=== PATIENT | female | born 1935 | race Caucasian/White ===

== ENCOUNTER → 2018-06-05 | Outpatient (CLI) | payer OTHER ==
[2018-06-05 10:00] LABS: BASO % 0.5 % (0.0-1.0); EOS # 0.2 10*3/uL (0.0-0.4); EOS % 3.4 % (1.0-4.0); HEMATOCRIT 39.6 % (37.0-47.0); HEMOGLOBIN 12.3 g/dl (12.0-16.0); LYMPH # 1.6 10*3/uL (1.3-4.4); LYMPH % 36.2 % (27.0-41.0); MEAN CELL VOLUME 89.2 fl (81.0-99.0); MEAN CORPUSCULAR HGB 27.7 pg (27.0-31.0); MEAN CORPUSCULAR HGB CONC 31.1 g/dl (33.0-37.0); MEAN PLATELET VOLUME 10.5 fl (9.6-12.3); MONO # 0.5 10*3/uL (0.1-1.0); MONO % 10.2 % (3.0-9.0); NEUT # 2.2 10*3/uL (2.3-7.9); NEUT % 49.2 % (47.0-73.0); PLATELET COUNT AUTOMATED 198 10*3/uL (130-400); RED BLOOD COUNT 4.44 10*6/uL (4.10-5.10); RED CELL DISTRI WIDTH 13.1 % (0-14.5); WHITE BLOOD COUNT 4.4 10*3/uL (4.8-10.8)
[2018-06-05 10:00] LABS: BILIRUBIN NEGATIVE (NEGATIVE); BLOOD NEGATIVE (NEGATIVE); CLARITY CLEAR (CLEAR); COLOR YELLOW (YELLOW); GLUCOSE NEGATIVE (NEGATIVE); KETONE NEGATIVE (NEGATIVE); LEUKO ESTERASE 1+ (NEGATIVE); NITRITE NEGATIVE (NEGATIVE); PH 5.5 (5.0-9.0); SPECIFIC GRAVITY >= 1.030 (1.005-1.030); UROBILINOGEN 0.2 E.U./dl (0.2-1.0)
[2018-06-05 10:23] LABS: BACTERIA 1+; WBC 16-20 wbc/hpf (0-5)
[2018-06-05 10:24] LABS: ALBUMIN 3.7 gm/dl (3.1-4.5); ALKALINE PHOSPHATASE 104 U/L (45-117); BUN 21 mg/dl (7-24); CHLORIDE 110 mmol/L (98-107); CHOLESTEROL 219 mg/dL (<200); FREE T4 1.04 ng/dl (0.76-1.46); HDL CHOLESTEROL 59 mg/dl (40-60); LDL CHOLESTEROL 137 mg/dL (9-159); SGOT/AST 18 IU/L (3-35); SGPT/ALT 19 U/L (12-78); SODIUM 142 mmol/L (136-145); TOTAL PROTEIN 7.9 gm/dL (6.4-8.2); TRIGLYCERIDES 113 mg/dl (<150); VLDL CHOLESTEROL 23 mg/dL (6-40)
== END | disposition home or self-care (01) ==
LOC: LAB 09:13
PROVIDERS: Internal Medicine
DX: E78.5 Hyperlipidemia, unspecified (principal); E03.9 Hypothyroidism, unspecified; E55.9 Vitamin D deficiency, unspecified; E11.9 Type 2 diabetes mellitus without complications; N39.0 Urinary tract infection, site not specified; Z79.899 Other long term (current) drug therapy

== ENCOUNTER → 2018-12-20 | Outpatient (CLI) | payer MEDICARE | END | disposition home or self-care (01) | LOC: CT 09:00 | DX: K57.30 Diverticulosis of large intestine without perforation or abscess without bleeding (principal) ==

== ENCOUNTER → 2019-02-14 | Outpatient (CLI) | payer MEDICARE ==
[2019-02-14 08:42] LABS: BASO % 0.4 % (0.0-1.0); EOS # 0.2 10*3/uL (0.0-0.4); HEMATOCRIT 35.6 % (37.0-47.0); HEMOGLOBIN 11.4 g/dl (12.0-16.0); LYMPH # 1.4 10*3/uL (1.3-4.4); LYMPH % 26.7 % (27.0-41.0); MEAN CELL VOLUME 89.7 fl (81.0-99.0); MEAN CORPUSCULAR HGB 28.7 pg (27.0-31.0); MEAN PLATELET VOLUME 10.5 fl (9.6-12.3); MONO # 0.5 10*3/uL (0.1-1.0); MONO % 9.5 % (3.0-9.0); NEUT # 3.1 10*3/uL (2.3-7.9); NEUT % 58.7 % (47.0-73.0); PLATELET COUNT AUTOMATED 254 10*3/uL (130-400); RED BLOOD COUNT 3.97 10*6/uL (4.10-5.10); WHITE BLOOD COUNT 5.3 10*3/uL (4.8-10.8)
[2019-02-14 08:44] LABS: BILIRUBIN NEGATIVE (NEGATIVE); BLOOD NEGATIVE (NEGATIVE); CLARITY SL CLOUDY (CLEAR); COLOR YELLOW (YELLOW); GLUCOSE NEGATIVE (NEGATIVE); KETONE NEGATIVE (NEGATIVE); LEUKO ESTERASE TRACE (NEGATIVE); NITRITE NEGATIVE (NEGATIVE); PH 5.5 (5.0-9.0); UROBILINOGEN 0.2 E.U./dl (0.2-1.0)
[2019-02-14 09:03] LABS: ALBUMIN 3.7 gm/dl (3.1-4.5); BUN 22 mg/dl (7-24); CHLORIDE 108 mmol/L (98-107); CHOLESTEROL 197 mg/dL (<200); CREATININE 1.04 mg/dL (0.55-1.02); POTASSIUM 4.2 mmol/L (3.5-5.1); SGOT/AST 9 IU/L (3-35); SGPT/ALT 12 U/L (12-78); SODIUM 138 mmol/L (136-145); TOTAL PROTEIN 7.8 gm/dL (6.4-8.2); TRIGLYCERIDES 222 mg/dl (<150); VLDL CHOLESTEROL 44 mg/dL (6-40)
[2019-02-14 09:09] LABS: ALKALINE PHOSPHATASE 176 U/L (45-117); FREE T4 0.85 ng/dl (0.76-1.46); HDL CHOLESTEROL 45 mg/dl (40-60); LDL CHOLESTEROL 108 mg/dL (9-159); THYROID STIM HORMONE (HS) 0.537 uIU/ml (0.358-4.75)
[2019-02-14 09:34] LABS: BACTERIA TRACE; MUCOUS TRACE
== END | disposition home or self-care (01) ==
LOC: LAB 00:37
PROVIDERS: Internal Medicine
DX: E03.9 Hypothyroidism, unspecified (principal); E78.5 Hyperlipidemia, unspecified; N39.0 Urinary tract infection, site not specified; R73.01 Impaired fasting glucose; Z79.899 Other long term (current) drug therapy

== ENCOUNTER → 2019-02-21 | Outpatient (CLI) | payer MEDICARE | END | disposition home or self-care (01) | LOC: US 16:18 | DX: I73.9 Peripheral vascular disease, unspecified (principal); I10 Essential (primary) hypertension; R20.0 Anesthesia of skin ==

== ENCOUNTER 2019-03-15 17:23 | Emergency (ER) | payer MEDICARE ==
[~2019-03-15] VITALS: Wt 73.9 kg
== END 2019-03-15 18:48 | disposition home or self-care (01) ==
LOC: ED 17:23
DX: R22.31 Localized swelling, mass and lump, right upper limb (principal); Z88.0 Allergy status to penicillin; Z88.2 Allergy status to sulfonamides; Z88.1 Allergy status to other antibiotic agents; Z88.8 Allergy status to other drugs, medicaments and biological substances

== ENCOUNTER 2019-06-20 10:53 | Emergency (ER) | payer MEDICARE ==
[~2019-06-20] VITALS: Ht 157.4 cm; Wt 77.6 kg
[2019-06-20] MEDS ORDERED: LISINOPRIL20 MG PO (11:19)
[2019-06-20] MEDS ORDERED: GEMFIBROZIL600 MG PO (11:20)
[2019-06-20] MEDS ORDERED: FLUOXETINE HCL20 M2 PO (11:21)
[2019-06-20] MEDS ORDERED: PANTOPRAZOLE SO40 MG PO (11:21)
[2019-06-20] MEDS ORDERED: DONEPEZIL HYDROC5 MG PO (11:21)
[2019-06-20] MEDS ORDERED: ATENOLOL50 M1 PO (11:22)
[2019-06-20] MEDS ORDERED: LEVOTHYROXINE100 MC1 PO (11:22)
[2019-06-20] MEDS ORDERED: CALCIUM 600 WI1 EAC1 PO (11:25)
[2019-06-20] MEDS ORDERED: ASPIRIN CHEWABL81 MG PO (11:25)
[2019-06-20] MEDS ORDERED: ALLERGY MEDICIN25 M1 PO (11:26)
[2019-06-20] MEDS ORDERED: CHLORTABS4 MG PO (11:26)
== END 2019-06-20 13:24 | disposition home or self-care (01) ==
LOC: ED 10:53
DX: T14.8XXA Other injury of unspecified body region, initial encounter (principal); M79.661 Pain in right lower leg; R07.81 Pleurodynia; F03.90 Unspecified dementia, unspecified severity, without behavioral disturbance, psychotic disturbance, mood disturbance, and anxiety; I10 Essential (primary) hypertension; E78.2 Mixed hyperlipidemia; Z88.0 Allergy status to penicillin; Z88.2 Allergy status to sulfonamides; Z88.1 Allergy status to other antibiotic agents; Z88.8 Allergy status to other drugs, medicaments and biological substances; Z79.899 Other long term (current) drug therapy; Z79.82 Long term (current) use of aspirin; W19.XXXA Unspecified fall, initial encounter; Y93.89 Activity, other specified; Y92.89 Other specified places as the place of occurrence of the external cause; Y99.8 Other external cause status

== ENCOUNTER 2019-07-12 08:40 | Inpatient (IN) | payer MEDICARE, MEDICAID ==
[~2019-07-12] VITALS: Ht 157.5 cm; Wt 77.1 kg
[~2019-07-12 08:40] MED LIST: ALLERGY MEDICIN25 M1 PO; ASPIRIN CHEWABL81 MG PO; ATENOLOL50 M1 PO; CALCIUM 600 WI1 EAC1 PO; CHLORTABS4 MG PO; DONEPEZIL HYDROC5 MG PO; FLUOXETINE HCL20 M2 PO; GEMFIBROZIL600 MG PO; LEVOTHYROXINE100 MC1 PO; LISINOPRIL20 MG PO; PANTOPRAZOLE SO40 MG PO
[2019-07-12 08:49] VITALS: BP 125/89
--- NOTE | 2019-07-12 11:08 | NUR ---
PT REMAINS W/O ACUTE DISTRESS NOTED WITH FAMILY @ BEDSIDE,SAFETY PRECAUTIONS INTACT AND CALL LIGHT WITHIN REACH.
[2019-07-12] MEDS ORDERED: INDOMETHACIN ER75 M1 PO (11:56)
[2019-07-12 12:38] VITALS: BP 130/80
--- NOTE | 2019-07-12 12:48 | NUR ---
PT WITH RT GREAT TOE WITH SCANT REDNESS S/P "TOENAILS CUT BY DIDACTIC PROGRAM IN DIETETICS DIRECTOR AND IT (TOE)STARTED TO HURT AND LLE WITH SMALL REDDENED AREA.
--- NOTE | 2019-07-12 13:10 | NUR ---
Time: 1309 A 84 year old MALE admitted to 5E under services of JESSIE LIVINGSTON DO. Pt. arrived via stretcher from ER. Chief complaint: PAIN . CALOS CABAN
[2019-07-12 13:20] LABS: BASO % 0.4 % (0.0-1.0); EOS # 0.1 10*3/uL (0.0-0.4); EOS % 2.8 % (1.0-4.0); HEMATOCRIT 35.6 % (37.0-47.0); HEMOGLOBIN 11.1 g/dl (12.0-16.0); LYMPH # 1.3 10*3/uL (1.3-4.4); LYMPH % 27.5 % (27.0-41.0); MEAN CELL VOLUME 90.8 fl (81.0-99.0); MEAN CORPUSCULAR HGB 28.3 pg (27.0-31.0); MEAN CORPUSCULAR HGB CONC 31.2 g/dl (33.0-37.0); MEAN PLATELET VOLUME 10.2 fl (9.6-12.3); MONO # 0.5 10*3/uL (0.1-1.0); MONO % 11.2 % (3.0-9.0); NEUT # 2.7 10*3/uL (2.3-7.9); NEUT % 57.5 % (47.0-73.0); PLATELET COUNT AUTOMATED 217 10*3/uL (130-400); RED BLOOD COUNT 3.92 10*6/uL (4.10-5.10); RED CELL DISTRI WIDTH 13.6 % (0-14.5); WHITE BLOOD COUNT 4.7 10*3/uL (4.8-10.8)
[2019-07-12 13:45] LABS: ALBUMIN 3.5 gm/dl (3.1-4.5); CREATININE 1.19 mg/dL (0.55-1.02); POTASSIUM 4.1 mmol/L (3.5-5.1); TOTAL PROTEIN 7.6 gm/dL (6.4-8.2)
[2019-07-12 13:55] VITALS: BP 141/48
[2019-07-12] MEDS ORDERED: CLARITIN10 MG PO (15:05)
[2019-07-12 16:00] VITALS: BP 153/64; BP 163/64
[2019-07-12 20:00] VITALS: BP 145/45
--- NOTE | 2019-07-12 23:24 | NUR ---
24 HR chart check completed.
--- NOTE | 2019-07-12 23:34 | NUR ---
TYLENOL AND RESTORIL GIVEN PER ORDER FOR RIGHT KNEE DISCOMFORT RATED "5" AND INSOMNIA. SEE MAR.
[2019-07-13] VITALS: BP 142/44
--- NOTE | 2019-07-13 00:35 | NUR ---
TYLENOL AND RESTORIL HELPING WITH PAIN AND PT. DROWSY.
--- NOTE | 2019-07-13 02:00 | NUR ---
SLEEPING NO ACUTE DISTRESS NOTED.
--- NOTE | 2019-07-13 03:20 | NUR ---
SLEEPING NOT ACUTE DISTRESS NOTED.
[2019-07-13 07:10] LABS: BASO % 0.3 % (0.0-1.0); EOS # 0.1 10*3/uL (0.0-0.4); EOS % 2.8 % (1.0-4.0); HEMATOCRIT 34.9 % (37.0-47.0); HEMOGLOBIN 10.6 g/dl (12.0-16.0); LYMPH # 0.8 10*3/uL (1.3-4.4); LYMPH % 23.5 % (27.0-41.0); MEAN CELL VOLUME 90.6 fl (81.0-99.0); MEAN CORPUSCULAR HGB 27.5 pg (27.0-31.0); MEAN CORPUSCULAR HGB CONC 30.4 g/dl (33.0-37.0); MEAN PLATELET VOLUME 10.5 fl (9.6-12.3); MONO # 0.4 10*3/uL (0.1-1.0); NEUT # 1.9 10*3/uL (2.3-7.9); NEUT % 59.5 % (47.0-73.0); PLATELET COUNT AUTOMATED 181 10*3/uL (130-400); RED BLOOD COUNT 3.85 10*6/uL (4.10-5.10); RED CELL DISTRI WIDTH 13.3 % (0-14.5); WHITE BLOOD COUNT 3.2 10*3/uL (4.8-10.8)
[2019-07-13 07:40] LABS: ACT PARTIAL THROMBO TIME 25.9 SECONDS (20.0-32.1); INTERNATIONAL NORM RATIO 0.9 (2.0-3.5)
[2019-07-13 07:41] LABS: BUN 26 mg/dl (7-24); CHLORIDE 110 mmol/L (98-107); CREATININE 1.05 mg/dL (0.55-1.02); POTASSIUM 4.1 mmol/L (3.5-5.1); SODIUM 141 mmol/L (136-145)
[2019-07-13 07:52] LABS: THYROID STIM HORMONE (HS) 0.785 uIU/ml (0.358-4.75)
[2019-07-13 08:00] VITALS: BP 150/48
[2019-07-13 08:17] LABS: VITAMIN D, 25-HYDROXY 37.1 ng/mL (30-100)
--- NOTE | 2019-07-13 10:09 | NUR ---
PATIENT C/O RIGHT KNEE PAIN. MEDICATED WITH TYLENOL PER PRN ORDER.
--- NOTE | 2019-07-13 10:30 | NUR ---
PHYSICAL THERAPY Isidra completed moderate level of complexity 39794 recomend SNF at discharge PT to work on transfers, ambulation balance and safety Janice Oconnor PT
--- NOTE | 2019-07-13 11:00 | NUR ---
Occupational Therapy evaluation completed on 5 with full eval to follow. Precautions include fall risk; bed/chair alarm, imp cognition; memory,orientation,impaired ADLs and safety in standing, moderate complexity level 54218. Recommend OT per pOC and SNf to enable safe return home w/ family. Thank you. Joyce Thurman OTr/l
[2019-07-13 12:00] VITALS: BP 120/60
--- NOTE | 2019-07-13 12:57 | NUR ---
Electronic Court Recorder in to talk to patient. Patient states lives at HOME with DAUGHTER. There are 1 steps in the home. Physician: SOLOMON Pharmacy: [facility] Home health services: NONE Patient's level of ADLs: MINIMAL ASSIST Patient has working utilities: YES DME: [facility] Follow-up physician's appointment after d/c: WILL BE MADE BY HOSPITALIST NURSE DIRECTOR ON DISCHARGE Does patient want to access PORTAL?: NO Discharge plan PT LIVES AT HOME WITH HER DAUGHTER. STATES SHE IS ABLE TO GET AROUND SOME AT HOME BUT HAS BEEN HAVING FALLS. PT WANTS TO GO TO A SNF BEFORE RETURNING HOME FOR REHAB. WANTS ME TO TALK TO HER DAUGHTER TO SEE WHICH ONE. I SPOKE WITH HER DAUGHTER JENNIFER AND SHE IS REQUESTING [facility] AND [facility]. WILL CONTINUE TO FOLLOW. . OLEG BAE
--- NOTE | 2019-07-13 13:01 | NUR ---
WILL SEND REFERRALS TO SNF WHEN PT AND OT ASSESSMENTS AVAILABLE.
[2019-07-13 16:00] VITALS: BP 136/58
[2019-07-13 20:00] VITALS: BP 122/39
[2019-07-13 20:15] VITALS: BP 122/50
--- NOTE | 2019-07-13 22:41 | NUR ---
TYLENOL GIVEN FOR KNEE PAIN PER ORDER FOR PAIN RATED "5" AND RESTORIL GIVEN FOR INSOMNIA. SEE MAR.
--- NOTE | 2019-07-13 23:30 | NUR ---
TYLENOL EFFECTIVE FOR KNEE PAIN AND RESTORIL PT. SLEEPY
[2019-07-14] VITALS: BP 135/45
[2019-07-14 08:00] VITALS: BP 172/53
--- NOTE | 2019-07-14 09:25 | NUR ---
OT NOTE Pt was seen this A.M. 1:1 for 25 minute OT session. Upon arrival pt was sitting upright in the recliner. Pt identified by name and and had no complaints at this time. While seated pt donned socks and slippers with SBA. Sit to stand completed from chair level with modA and use of w/w for UE support. Pt was educated on proper hand placement for increased I and improved technique. Challenged pt's static standing tolerance needed for increased I in self care tasks and functional transfers. Pt was able to tolerate aprox 5 minutes before sitting due to fatigue. Functional mobility was then completed to the bathroom with CGA and use of w/w. There she transferred on to standard commode with Torie and off with modA and use of grab bar for UE support. Clothing management completed with Torie and toilet hygiene completed with Torie. Pt then stood sink side while washing her hands with CGA for safety. Functional mobility was then completed back to the recliner with CGA and use of w/w for UE support. Pt was left sitting upright in the recliner with call light in hand, tray table in place, and body alarm activated for safety. COntinue with rec D/C plan to SNF. RASTA Pepper/Hollie
--- NOTE | 2019-07-14 09:48 | NUR ---
Patient requesting a referral to 1. [facility] and 2. [facility]; Faxed to both locations. [facility] is [facility] and will check for any OON benefits. [facility].
--- NOTE | 2019-07-14 10:51 | NUR ---
PHYSICAL THERAPY TREATMENT TIME: 10:30 AM - 10:51 21 minutes Patient presented to therapy in sitting in bedside chair with no spO2 AND COMPLAINT OF R KNEE PAIN OF 5/10. Patient gives informed consent for treatment. Patient was identified by name and on wristband. Patient performed sit to stand out of bed side chair with MOD A X 1 due to increased R knee with sit to stand. Patient ambulated 28' x 1 with Wh Walker and CGA X 1 wit hNOB and patient sat in low chair in hallway with MIN A X 1. Patient performed TUG TEST in 56 seconds from low chair with no armrests. PATIENT REQUIRED MOD A X 1 TO SIT TO STAND OUT OF LOW CHAIR DURING TUG TEST. Patient ambulated with Wh Walker and CGA X 1 for 50' X 1 and NOB and mild SOB. Patient performed transferred to bedside chair with MIN A X 1. Patient performed 30 second sit to stand test out of bedside chair with results recorded as 2 sit to stands performed in 30 seconds total with CGA X 1- MIN A X 1. Patient was lef in bed side chair wit hchair alarm tested and attached ot patient, call light within reach and tray table near patient. Patient was 1:1 with this [employer] for 21 minutes total. ZOILA JEFFRIES [employer] [employer]
[2019-07-14 12:00] VITALS: BP 163/77
--- NOTE | 2019-07-14 12:46 | NUR ---
[facility] is stating patients oon benefits are the same at in network, they are reviewing clinicals, waiting on acceptance.
--- NOTE | 2019-07-14 14:48 | NUR ---
Pt was seen x 15 minutes with OT beginning with sit to stand from bedside chair with Min A x 1 or 2 at times when fatigued. Pt performed fxl mobility with w/walker throughout room & hallway with Min A due to safety issues. Transferred to chair with Min A & cues for hand placement when stand to sitting. Continue with OT per POC. Call light within reach. Sarina MENDIETA/Hollie
--- NOTE | 2019-07-14 14:51 | NUR ---
Patient has been accepted to [facility] and precert has been started. Waiting on auth.
--- NOTE | 2019-07-14 16:34 | NUR ---
OCCUPATIONAL THERAPY CO-SIGN I approve of the Occupational Therapy notes written above. JAMAR RAMESH OTR/Hollie
--- NOTE | 2019-07-14 16:36 | NUR ---
PHYSICAL THERAPY CO-SIGN I approve of the Physical Therapy notes written above. Janice Oconnor PT
--- NOTE | 2019-07-14 19:30 | NUR ---
PT RESTING IN BED. FAMILY AT BEDSIDE. PT HAS NO COMPLAINTS AT THIS TIME AND DENIES ANY PAIN AT THIS TIME. ASSESSMENT COMPLETE. CALL LIGHT WITHIN REACH. JEFF CONTINUE TO MONITOR.
[2019-07-14 20:00] VITALS: BP 154/52
--- NOTE | 2019-07-14 20:46 | NUR ---
PT CO RIGHT KNEE PAIN. MEDICATED WITH PRN TYLENOL. WILL CHECK EFFECTIVENESS. CALL LIGHT WITHIN REACH.
--- NOTE | 2019-07-14 21:34 | NUR ---
PT SLEEPING. TYLENOL SEEMS TO BE EFFECTIVE. CALL LIGHT WITHIN REACH. WILL CONTINUE TO MONITOR.
--- NOTE | 2019-07-14 21:55 | NUR ---
24 HR chart check completed.
[2019-07-15] VITALS: BP 130/47
[2019-07-15 08:00] VITALS: BP 154/68
[2019-07-15 12:00] VITALS: BP 150/60
[2019-07-15 16:00] VITALS: BP 136/94
--- NOTE | 2019-07-15 19:53 | NUR ---
PT RESTING IN BED. FAMILY AT BEDSIDE. PT AND FAMILY STATES PTS KNEE HAS BEEN BOTHERING HER A LOT TODAY AND SHE WOULD LIKE SOMETHING STRONGER FOR THE PAIN. PT ALSO STATES SHE WOULD LIKE TO BE ABLE TO GET SOME SLEEP TONIGHT. K PAD APPLIED TO RIGHT KNEE AND PT MEDICATED WITH PRN RESTORIL AND NORCO. WILL CHECK EFFECTIVENESS. ASSESSMENT COMPLETE. NO OTHER COMPLAINTS AT THIS TIME. RESPIRATIONS EASY AND REGULAR. CALL LIGHT IN REACH. WILL CONTINUE TO MONITOR.
[2019-07-15 20:00] VITALS: BP 119/87
--- NOTE | 2019-07-15 21:00 | NUR ---
PT SLEEPING. RESPIRATIONS EASY AND REGULAR. RESTORIL AND NORCO EFFECTIVE. WILL CONTINUE TO MONITOR.
[2019-07-16] VITALS: BP 106/73
--- NOTE | 2019-07-16 00:36 | NUR ---
24 HR chart check completed.
--- NOTE | 2019-07-16 07:20 | NUR ---
DR RIOS HERE TO ASSESS PATIENT AND DISCUSS PLAN OF CARE
--- NOTE | 2019-07-16 07:53 | NUR ---
24 HR chart check completed.
[2019-07-16 08:00] VITALS: BP 160/73
--- NOTE | 2019-07-16 09:00 | NUR ---
RESTING IN BED WITH NO ACUTE DISTRESS NOTED. RESPIRATIONS EASY. LUNGS DIMINISHED, CLEAR. PULSE OX 96% RA. RIGHT KNEE SWELLING NOTED WITH K-PAD IN USE. CALL LIGHT WITHIN REACH. NO VOICED COMPLAINTS. BED ALARM IN PLACE FOR SAFETY
[2019-07-16 12:00] VITALS: BP 99/80
--- NOTE | 2019-07-16 15:00 | NUR ---
VISITING WITH FAMILY. NO DISTRESS NOTED. VSS. CALL LIGHT WITHIN REACH
[2019-07-16 16:00] VITALS: BP 155/67
--- NOTE | 2019-07-16 18:00 | NUR ---
RESTING IN BED WITH NO DISTRESS NOTED. RESPIRATIONS EASY. CALL LIGHT WITHIN REACH. BED ALARM MAINTAINED FOR SAFETY
--- NOTE | 2019-07-16 19:33 | NUR ---
24 HR chart check completed.
[2019-07-16 20:00] VITALS: BP 136/47
--- NOTE | 2019-07-16 23:00 | NUR ---
ASSUMED CARE FOR THIS PT AT THIS TIME. PT RESTING QUIETLY IN BED W/EYES CLOSED. NO S/S OF DISTRESS NOTED. CALL LIGHT IN REACH. BED ALARM ON.
[2019-07-17] VITALS: BP 133/51
--- NOTE | 2019-07-17 07:27 | NUR ---
Patient has received auth for [facility] # [id number]. Patient ok to go today if medically stable for discharge.
[2019-07-17 08:00] VITALS: BP 139/63
--- NOTE | 2019-07-17 09:09 | NUR ---
OT NOTE PATIENT SEEN 1:1 OT THIS DATE 23 MINUTES. PATIENT IDENTIFIED BY NAME AND DATE OF . PATIENT FINISHING UP SHOWER IN SHOWER ROOM UPON ARRIVAL THIS DATE WITH NURSING. PATIENT COMPLETED UB DRESSING MIN A DOWN GOWN SEATED. COMPLETED LB DRESSING MOD A SECONDARY DIFFICULTY REACHING FEET AND PULLING GARMENT OVER HIPS. PATIENT COMPLETED SIT TO STAND FROM CHAIR WITHOUT ARM REST USE GRABBAR MIN A. COMPLETED FUNCTIONAL AMBULATION USE FWW SHOWER ROOM TO ROOM USE FWW CGA WITH MIN VERBAL CUES SAFETY WITH TURNS STAND TO SIT RECLINER. COMPLETED GROOMING TASK SEATED COMB HAIR SBA AFTER GARCIA. PATIENT SEATED IN RECLINER WITH CALL LIGHT AND CHAIR ALARM IN TACT. NO FURTHER NEEDS VERBALIZED. CONTINUE TOWARDS PLAN OF CARE. BONNIE MAGDALENO/Hollie
--- NOTE | 2019-07-17 09:10 | NUR ---
PHYSICAL THERAPY Patient seen this am 1:1 for therapy visit and was sitting up in bedside chair upon therapist arrival. Patient identified by name / and was very pleasant, reporting 5/10 R knee pain. Patient instructed on then performed seated B LE therex, all planes, x 10 reps each to increase LE strength as tolerated. Patient performed sit to stand transfer, MOD A x 1 from low chair surface and ambulated with use of wh walker, 40'x 1, CGA, demonstrating very slow, cautious, antalgic gait pattern. Patient also was unsteady during 180 degree turn around and returned to bedside chair with increased fatigue. Patient remained in bedside chair with call light, tray table, telephone and body alarm for safety. Will continue per POC as tolerated to improve safe transfers, Mobililty and increased standing activity tolerance, total treatment time 18 minutes. Home Mccloud, PROBATION COUNSELOR
[2019-07-17] MEDS ORDERED: NORCO 5-325 TA1 EACH PO (10:55)
--- NOTE | 2019-07-17 11:07 | NUR ---
[facility] is [facility] Patients daughter will transport around noon. NH notified.
--- NOTE | 2019-07-17 11:15 | NUR ---
DISCHARGE INSTRUCTIONS REVIEWED. VENKAT ESCOBAR.
--- NOTE | 2019-07-17 11:19 | NUR ---
REPORT GIVEN TO KAREN AT THE [facility].
[2019-07-17 12:00] VITALS: BP 149/64
--- NOTE | 2019-07-17 12:10 | NUR ---
PT DISCHARGED TO [facility] AT THIS TIME. DAUGHTER TO TAKE HER. PT WHEELED OUT VIA WHEELCHAIR. VSS.
--- NOTE | 2019-07-18 07:46 | NUR ---
OCCUPATIONAL THERAPY CO-SIGN I approve of the Occupational Therapy notes written above. MARISA MONTANO, OTR/L
--- NOTE | 2019-07-18 14:49 | NUR ---
PHYSICAL THERAPY CO-SIGN I approve of the Physical Therapy notes written above. Janice Oconnor PT
== END 2019-07-17 12:10 | disposition other institution (70) | DRG 554 ==
LOC: ED 08:40 → 5E 12:16 → EDHOLD 12:16 → 5E 12:30
PROVIDERS: Internal Medicine; Physician Assistant; ADMIT Internal Medicine
DX: M17.11 Unilateral primary osteoarthritis, right knee (principal); F03.90 Unspecified dementia, unspecified severity, without behavioral disturbance, psychotic disturbance, mood disturbance, and anxiety; M10.9 Gout, unspecified; R29.6 Repeated falls; E87.8 Other disorders of electrolyte and fluid balance, not elsewhere classified; K21.9 Gastro-esophageal reflux disease without esophagitis; D64.9 Anemia, unspecified; I10 Essential (primary) hypertension; E03.9 Hypothyroidism, unspecified; Z96.649 Presence of unspecified artificial hip joint; Z88.1 Allergy status to other antibiotic agents; Z88.0 Allergy status to penicillin; Z91.018 Allergy to other foods; Z79.899 Other long term (current) drug therapy; Z82.0 Family history of epilepsy and other diseases of the nervous system; Z79.82 Long term (current) use of aspirin

== ENCOUNTER 2019-08-08 14:18 | Emergency (ER) | payer MEDICARE, MEDICAID ==
[~2019-08-08] VITALS: Ht 157.4 cm; Wt 77.1 kg
[~2019-08-08 14:18] MED LIST changes: +CLARITIN10 MG PO; +INDOMETHACIN ER75 M1 PO; +NORCO 5-325 TA1 EACH PO
[2019-08-08 14:59] LABS: BASO % 0.5 % (0.0-1.0); EOS # 0.1 10*3/uL (0.0-0.4); HEMATOCRIT 32.7 % (37.0-47.0); HEMOGLOBIN 10.2 g/dl (12.0-16.0); LYMPH # 1.4 10*3/uL (1.3-4.4); LYMPH % 32.6 % (27.0-41.0); MEAN CELL VOLUME 89.1 fl (81.0-99.0); MEAN CORPUSCULAR HGB 27.8 pg (27.0-31.0); MEAN CORPUSCULAR HGB CONC 31.2 g/dl (33.0-37.0); MEAN PLATELET VOLUME 10.3 fl (9.6-12.3); MONO # 0.5 10*3/uL (0.1-1.0); MONO % 12.1 % (3.0-9.0); NEUT # 2.3 10*3/uL (2.3-7.9); NEUT % 51.1 % (47.0-73.0); PLATELET COUNT AUTOMATED 201 10*3/uL (130-400); RED BLOOD COUNT 3.67 10*6/uL (4.10-5.10); RED CELL DISTRI WIDTH 13.2 % (0-14.5); WHITE BLOOD COUNT 4.4 10*3/uL (4.8-10.8)
[2019-08-08 15:17] LABS: ALBUMIN 3.3 gm/dl (3.1-4.5); ALKALINE PHOSPHATASE 179 U/L (45-117); BUN 15 mg/dl (7-24); CHLORIDE 111 mmol/L (98-107); CREATININE 0.92 mg/dL (0.55-1.02); POTASSIUM 3.7 mmol/L (3.5-5.1); SGOT/AST 14 IU/L (3-35); SGPT/ALT 13 U/L (12-78); SODIUM 142 mmol/L (136-145); TOTAL PROTEIN 7.1 gm/dL (6.4-8.2)
[2019-08-08 16:21] LABS: BILIRUBIN NEGATIVE (NEGATIVE); BLOOD NEGATIVE (NEGATIVE); CLARITY SL CLOUDY (CLEAR); COLOR YELLOW (YELLOW); GLUCOSE NEGATIVE (NEGATIVE); KETONE NEGATIVE (NEGATIVE); LEUKO ESTERASE 1+ (NEGATIVE); NITRITE NEGATIVE (NEGATIVE); SPECIFIC GRAVITY 1.015 (1.005-1.030); UROBILINOGEN 0.2 E.U./dl (0.2-1.0)
[2019-08-08 16:28] LABS: BACTERIA 1+; RBC 0-2 rbc/hpf (0-2); WBC 21-30 wbc/hpf (0-5)
[2019-08-08] MEDS ORDERED: AMINOPHYLLIN200 MG PO (16:36)
== END 2019-08-08 17:14 | disposition home or self-care (01) ==
LOC: ED 14:18
PROVIDERS: Nurse Practitioner Family
DX: N39.0 Urinary tract infection, site not specified (principal); S61.412A Laceration without foreign body of left hand, initial encounter; F03.90 Unspecified dementia, unspecified severity, without behavioral disturbance, psychotic disturbance, mood disturbance, and anxiety; I10 Essential (primary) hypertension; K21.9 Gastro-esophageal reflux disease without esophagitis; E03.9 Hypothyroidism, unspecified; M19.90 Unspecified osteoarthritis, unspecified site; E78.2 Mixed hyperlipidemia; Z88.2 Allergy status to sulfonamides; Z88.1 Allergy status to other antibiotic agents; Z88.8 Allergy status to other drugs, medicaments and biological substances; Z79.899 Other long term (current) drug therapy; Z79.82 Long term (current) use of aspirin; W54.8XXA Other contact with dog, initial encounter; Y93.89 Activity, other specified; Y92.098 Other place in other non-institutional residence as the place of occurrence of the external cause; Y99.8 Other external cause status

== ENCOUNTER → 2021-03-25 | Outpatient (CLI) | payer MEDICARE, MEDICAID ==
[~2021-03-25] MED LIST changes: +AMINOPHYLLIN200 MG PO
== END | disposition home or self-care (01) ==
LOC: US 03-17 14:00
PROVIDERS: ATTEND Urology
DX: R32 Unspecified urinary incontinence (principal)

== ENCOUNTER 2021-04-10 13:49 | Emergency (ER) | payer MEDICARE, MEDICAID | END 2021-04-10 20:20 | LOC: ED 13:49 | DX: S00.93XA Contusion of unspecified part of head, initial encounter (principal); M25.422 Effusion, left elbow; Z88.0 Allergy status to penicillin; Z88.2 Allergy status to sulfonamides; Z88.8 Allergy status to other drugs, medicaments and biological substances; Z79.899 Other long term (current) drug therapy; Z79.82 Long term (current) use of aspirin; W17.89XA Other fall from one level to another, initial encounter; Y93.89 Activity, other specified; Y92.89 Other specified places as the place of occurrence of the external cause; Y99.8 Other external cause status ==

== ENCOUNTER 2021-04-12 10:59 | Emergency (ER) | payer MEDICARE, MEDICAID ==
[2021-04-12 11:34] LABS: HEMATOCRIT 39.1 % (37.0-47.0); MEAN CELL VOLUME 93.8 fl (81.0-99.0); MEAN CORPUSCULAR HGB 27.6 pg (27.0-31.0); MEAN CORPUSCULAR HGB CONC 29.4 g/dl (33.0-37.0); PLATELET COUNT AUTOMATED 243 10*3/uL (130-400); RED BLOOD COUNT 4.17 10*6/uL (4.10-5.10); RED CELL DISTRI WIDTH 14.5 % (0-14.5); WHITE BLOOD COUNT 11.2 10*3/uL (4.8-10.8)
[2021-04-12 11:49] LABS: ALBUMIN 2.9 gm/dl (3.1-4.5); ALKALINE PHOSPHATASE 105 U/L (45-117); BUN 82 mg/dl (7-24); CHLORIDE 114 mmol/L (98-107); CREATININE 3.14 mg/dL (0.55-1.02); SGOT/AST 16 IU/L (3-35); SGPT/ALT 7 U/L (12-78); SODIUM 138 mmol/L (136-145); TOTAL PROTEIN 7.8 gm/dL (6.4-8.2)
[2021-04-12 11:52] LABS: PLATELET SUFFICIENCY NORMAL (NORMAL); TOTAL CELLS COUNTED 100 #CELLS
[2021-04-12 11:56] LABS: TROPONIN I < 0.015 ng/ml (<0.045)
[2021-04-12 11:57] LABS: POTASSIUM 8.5 mmol/L (3.5-5.1)
== END 2021-04-12 17:16 | disposition hospice, home (50) ==
LOC: ED 10:59
PROVIDERS: Emergency Medicine
DX: I12.0 Hypertensive chronic kidney disease with stage 5 chronic kidney disease or end stage renal disease (principal); N18.5 Chronic kidney disease, stage 5; F03.90 Unspecified dementia, unspecified severity, without behavioral disturbance, psychotic disturbance, mood disturbance, and anxiety; I44.2 Atrioventricular block, complete; E87.5 Hyperkalemia; K21.9 Gastro-esophageal reflux disease without esophagitis; M10.9 Gout, unspecified; E03.9 Hypothyroidism, unspecified; Z88.0 Allergy status to penicillin; Z88.2 Allergy status to sulfonamides; Z88.1 Allergy status to other antibiotic agents; Z88.8 Allergy status to other drugs, medicaments and biological substances; Z79.899 Other long term (current) drug therapy; Z79.82 Long term (current) use of aspirin